=== PATIENT | female | born 1970 | race African-American/Black ===

== ENCOUNTER 2016-12-01 07:32 | Observation (INO) | payer MEDICAID ==
[~2016-12-01] VITALS: Ht 170.2 cm; Wt 70.0 kg
[2016-12-01 07:37] VITALS: BP 131/89; PULSE 92; RESP 16; TEMP 98.5; O2SAT 99
[2016-12-01] MEDS ORDERED: OMEG100010 (07:51)
[2016-12-01] MEDS ORDERED: BUPR100T4 PO (07:51)
[2016-12-01] MEDS ORDERED: LISI-515 PO (07:51)
[2016-12-01] MEDS ORDERED: ASPI81TA11 PO (07:51)
[2016-12-01 07:52] VITALS: O2SAT 99
[2016-12-01] MEDS ORDERED: NITROGLYCERIN 0.4 MG SL 25 TABS/BTL SL ONE (08:00)
[2016-12-01] MEDS ORDERED: SODIUM CHLORIDE 0.9% FLUSH 10 ML FLUSH IVF PRN (08:00)
--- NOTE | 2016-12-01 08:18 | RADRPT ---
EXAM DATE/TIME: 12/01/2016 07:53 [facility] COMPARISON: No previous studies available for comparison. INDICATIONS : Chest pain. Short of breath. MEDICAL HISTORY : None. SURGICAL HISTORY : None. ENCOUNTER: Initial ACUITY: 1 day PAIN SCORE: 6/10 LOCATION: middle chest FINDINGS: A single view of the chest demonstrates the lungs to be symmetrically aerated without evidence of mas s, infiltrate or effusion. Mild cardiomegaly. There is slight convexity along the ascending aorta. O sseous structures are intact. CONCLUSION: 1. Slight convexity ascending aorta. Aneurysm cannot be excluded. Contrasted CT chest recommended. 2. Mild cardiomegaly. Adam Wu MD on December 01, 2016 at 8:15 Board Certified Radiologist. This report was verified electronically.
[2016-12-01 08:30] LABS: AUTOMATED NEUTROPHIL # 0.9 TH/MM3 (1.8-7.7); BASOPHIL % 1.1 % (0.0-2.0); EOSINOPHIL % 1.5 % (0.0-4.0); HEMATOCRIT 40.1 % (35.0-46.0); HEMO FLAGS AUTO DIFF; MEAN CELL VOLUME 79.4 FL (80.0-100.0); MEAN CORPUSCULAR HEMOGLOBIN 25.7 PG (27.0-34.0); MEAN CORPUSCULAR HGB CONC 32.3 % (32.0-36.0); MONO % 7.6 % (0.0-8.0); NEUT % 28.8 % (16.0-70.0); PLATELET COUNT 215 TH/MM3 (150-450); RED BLOOD COUNT 5.05 MIL/MM3 (4.00-5.30); RED CELL DISTRIBUTION WIDTH 16.4 % (11.6-17.2); WHITE BLOOD COUNT 3.3 TH/MM3 (4.0-11.0)
[2016-12-01 08:40] LABS: APTT (PATIENT) 26.4 SEC (24.3-30.1)
[2016-12-01 09:05] LABS: ALT (GPT) 24 U/L (10-53)
[2016-12-01 09:11] LABS: NEUTROPHIL # MANUAL DIFF 1.1 TH/MM3 (1.8-7.7); POLYS (SEG NEUTROPHILS) 33 % (16-70); WBC DIFF SAMPLE 100
[2016-12-01 09:12] LABS: OVALOCYTES 1+ (NORMAL); PLATELET ESTIMATE SMEAR NORMAL (NORMAL); PLATELET MORPHOLOGY NORMAL (NORMAL); SCAN/DIFF FINAL DIFF MANUAL
[2016-12-01 09:13] LABS: ALKALINE PHOSPHATASE 69 U/L (45-117); ANION GAP 9 MEQ/L (5-15); AST (GOT) 19 U/L (15-37); BICARBONATE 21.6 MEQ/L (21.0-32.0); BLOOD UREA NITROGEN 10 MG/DL (7-18); CHLORIDE 111 MEQ/L (98-107); GLOMERULAR FILTRATION RATE 107 ML/MIN (>89); MAGNESIUM 2.2 MG/DL (1.5-2.5); SODIUM (NA) 142 MEQ/L (136-145); TOTAL BILIRUBIN ADULT 0.6 MG/DL (0.2-1.0)
[2016-12-01 09:19] LABS: CREATINE KINASE 91 U/L (26-192); POTASSIUM 3.7 MEQ/L (3.5-5.1)
[2016-12-01 09:32] VITALS: BP 121/83; PULSE 93; RESP 16; O2SAT 99
[2016-12-01 09:33] VITALS: BP 131/94
[2016-12-01] MEDS ORDERED: IOHEXOL 350 MG/ML 10 ML VIAL (for RAD DIAG) IV ONE (10:07)
--- NOTE | 2016-12-01 10:29 | RADRPT ---
EXAM DATE/TIME: 12/01/2016 09:51 [facility] COMPARISON: No previous studies available for comparison. INDICATIONS : Mid sternal chest pain since this morning IV CONTRAST: 72 cc Omnipaque 350 (iohexol) IV RADIATION DOSE: 14.42 CTDIvol (mGy) MEDICAL HISTORY : Cardiovascular disease. Hypertension. SURGICAL HISTORY : Hysterectomy. ENCOUNTER: Initial ACUITY: 1 day PAIN SCALE: 7/10 LOCATION: mid sternal TECHNIQUE: Volumetric scanning was performed using a multi-row detector CT scanner. The data was post processed with a variety of visualization algorithms including full volume maximum intensity projection, multi -planar sliding thin slab reformation, curved planar reformation, and surface rendering techniques. Using automated exposure control and adjustment of the mA and/or kV according to patient size, radiat ion dose was kept as low as reasonably achievable to obtain optimal diagnostic quality images. DICOM format image data is available electronically for review and comparison. FINDINGS: LUNGS: There is no consolidation or pneumothorax. Minimal linear densities in the lung bases. No concerning pulmonary nodule is visualized. No pleural fluid is present. MEDIASTINUM: No abnormally enlarged lymph nodes by CT criteria. No axillary or hilar abnormalities are identified. ABDOMEN: The liver and spleen are free of focal defects. The gallbladder and pancreas demonstrate no abnormali ty. The adrenal glands are normal. The kidneys demonstrate no evidence of solid renal mass or hydrone phrosis. No free fluid or abdominal masses are identified. No para-aortic adenopathy is seen. PELVIS: No evidence of free fluid or pelvic mass. No abnormally enlarged inguinal or retroperitoneal lymph no juana are present. The bladder is unremarkable. THORACIC AORTA: The thoracic aortic root is normal with normal branching of the great vessels, with the exception of an aberrant right subclavian artery coursing posterior to the esophagus. There is no evidence of ane urysm or dissection. ABDOMINAL AORTA: The aorta is normal in caliber without aneurysm or dissection. The renal arteries are patent bilater ally. The proximal celiac and superior mesenteric arteries are patent and normal in diameter. PELVIC VESSELS: The internal iliac and external iliac vessels are patent without aneurysm or stenosis. CONCLUSION: 1. No thoracic aortic aneurysm or dissection. 2. 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 3. Minimal bibasilar scarring. Adam Wu MD on December 01, 2016 at 10:23 Board Certified Radiologist. This report was verified electronically.
--- NOTE | 2016-12-01 11:01 | PD ---
HPI Chief Complaint: Chest Pain Time Seen by Provider: 07:48 Travel History International Travel<30 days: No Contact w/Intl Traveler<30days: No Traveled to known affect area: No History of Present Illness HPI 46-year-old female presents with central chest pain that started this morning while she was at work. She states that she had some a little bit yesterday. She denies any other concurrent complaints. She states this doesn't feel like her typical anxiety attack. She was given aspirin prior to arrival. She states it feels like a pressure and moved to the left side today. She denies any prior cardiac testing. She denies specific modifying factors. PFS Past Medical History Narrative Medical Confirmed by records Anemia: Yes Blood Disorders: No Anxiety: Yes Depression: No Cancer: No Cardiovascular Problems: Yes High Cholesterol: Yes Chemotherapy: No Diminished Hearing: No Endocrine: No Genitourinary: No Headaches: Yes (HEADACHE X4 DAYS) Hypertension: Yes Immune Disorder: No Musculoskeletal: No Neurologic: No Psychiatric: No Reproductive: Yes (FIBROIDS) Respiratory: No Radiation Therapy: No ?: Not Menopausal: Yes : 2 Para: 2 Miscarriage: 0 : 0 Tubal Ligation: Yes (1991) Past Surgical History Narrative Surgical Confirmed by records AICD: No Arteriovenous Shunt: No Gynecologic Surgery: Yes (TUBAL LIGATION, HYSTERECTOMY) Hysterectomy: Yes (2006) Insulin Pump: No Joint Replacement: No Pacemaker: No Other Surgery: No Social History Alcohol Use: Yes (BEER 6PK/DAILY) Tobacco Use: No (HASN'T SMOKED IN 3 MONTHS) Substance Use: No Allergies-Medications (Allergen,Severity, Reaction): Coded Allergies: No Known Allergies (Verified , 12/01/16) Reported Meds & Prescriptions Reported Meds & Active Scripts Active Reported Bupropion HCl 100 Mg Tab 100 Mg PO BID [place] 3 1000 mg ([place]-3 Fatty Acids) 1 Cap Cap Aspirin EC (Aspirin) 81 Mg Tabdr 81 Mg PO DAILY Lisinopril 20 Mg Tab 20 Mg PO DAILY Review of Systems Except as stated in HPI: all other systems reviewed are Neg Physical Exam Narrative GENERAL: Well-nourished, well-developed patient. SKIN: Warm and dry. HEAD: Normocephalic and atraumatic. EYES: No injection or drainage. ENT: No nasal drainage noted. NECK: Supple, trachea midline. CARDIOVASCULAR: Regular rate and rhythm RESPIRATORY: Breath sounds equal bilaterally. No accessory muscle use. GASTROINTESTINAL: Abdomen soft, non-tender, nondistended. EXTREMITIES: No edema. NEUROLOGICAL: Awake and alert. Motor and sensory grossly within normal limits. Normal speech. Data Data Last Documented VS Vital Signs Date Time Temp Pulse Resp B/P Pulse Ox O2 Delivery O2 Flow Rate FiO2 12/01/16 09:33 131/94 12/01/16 09:32 93 16 99 Room Air 12/01/16 07:37 98.5 Orders Electrocardiogram (12/01/16 07:48) Ckmb (Isoenzyme) Profile (12/01/16 07:48) Complete Blood Count With Diff (12/01/16 07:48) Comprehensive Metabolic Panel (12/01/16 07:48) Magnesium (Mg) (12/01/16 07:48) Prothrombin Time / Inr (Pt) (12/01/16 07:48) Act Partial Throm Time (Ptt) (12/01/16 07:48) Troponin I (12/01/16 07:48) Chest, Single Ap (12/01/16 07:48) Ecg Monitoring (12/01/16 07:48) Bilateral Bp Monitoring (12/01/16 07:48) Iv Access Insert/Monitor (12/01/16 07:48) Oximetry (12/01/16 07:48) Sodium Chloride 0.9% Flush (Ns Flush) (12/01/16 08:00) Nitroglycerin Sl (Nitrostat Sl) (12/01/16 08:00) Cta Thor Abd Aorta W Iv C W3d (12/01/16 09:36) Iohexol 350 Inj (Omnipaque 350 Inj) (12/01/16 10:07) Admit Order (Ed Use Only) (12/01/16 10:34) Labs Laboratory Tests Test 12/01/16 08:12 White Blood Count 3.3 TH/MM3 Red Blood Count 5.05 MIL/MM3 Hemoglobin 13.0 GM/DL Hematocrit 40.1 % Mean Corpuscular Volume 79.4 FL Mean Corpuscular Hemoglobin 25.7 PG Mean Corpuscular Hemoglobin 32.3 % Concent Red Cell Distribution Width 16.4 % Platelet Count 215 TH/MM3 Mean Platelet Volume 7.6 FL Neutrophils (%) (Auto) 28.8 % Lymphocytes (%) (Auto) 61.0 % Monocytes (%) (Auto) 7.6 % Eosinophils (%) (Auto) 1.5 % Basophils (%) (Auto) 1.1 % Neutrophils # (Auto) 0.9 TH/MM3 Lymphocytes # (Auto) 2.0 TH/MM3 Monocytes # (Auto) 0.2 TH/MM3 Eosinophils # (Auto) 0.0 TH/MM3 Basophils # (Auto) 0.0 TH/MM3 CBC Comment AUTO DIFF Differential Total Cells 100 Counted Neutrophils % (Manual) 33 % Lymphocytes % 60 % Monocytes % 7 % Neutrophils # (Manual) 1.1 TH/MM3 Differential Comment FINAL DIFF MANUAL Platelet Estimate NORMAL Platelet Morphology Comment NORMAL Ovalocytes 1+ Prothrombin Time 11.0 SEC Prothromb Time International 1.0 RATIO Ratio Activated Partial 26.4 SEC Thromboplast Time Sodium Level 142 MEQ/L Potassium Level 3.7 MEQ/L Chloride Level 111 MEQ/L Carbon Dioxide Level 21.6 MEQ/L Anion Gap 9 MEQ/L Blood Urea Nitrogen 10 MG/DL Creatinine 0.71 MG/DL Estimat Glomerular Filtration 107 ML/MIN Rate Random Glucose 92 MG/DL Calcium Level 9.3 MG/DL Magnesium Level 2.2 MG/DL Total Bilirubin 0.6 MG/DL Aspartate Amino Transf 19 U/L (AST/SGOT) Alanine Aminotransferase 24 U/L (ALT/SGPT) Alkaline Phosphatase 69 U/L Total Creatine Kinase 91 U/L Troponin I LESS THAN 0.02 NG/ML Total Protein 6.9 GM/DL Albumin 3.6 GM/DL MDM Medical Decision Making Medical Screen Exam Complete: Yes Emergency Medical Condition: Yes Medical Record Reviewed: Yes (past history confirmed) Interpretation(s) CBC & BMP Diagram 12/01/16 08:12 Last 24 hours Impressions Aorta CTA 12/01/16 0936 Signed Impressions: Service Date/Time: Thursday, December 01, 2016 09:51 - CONCLUSION: 1. No thoracic aortic aneurysm or dissection. 2. 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 3. Minimal bibasilar scarring. Adam Wu MD Chest X-Ray 12/01/16 0769 Signed Impressions: Service Date/Time: Thursday, December 01, 2016 07:53 - CONCLUSION: 1. Slight convexity ascending aorta. Aneurysm cannot be excluded. Contrasted CT chest recommended. 2. Mild cardiomegaly. Adam Wu MD EKG is sinus without STEMI criteria Differential Diagnosis FL, gastritis, anxiety, anemia Narrative Course Will check blood work, chest x-ray, EKG and dose with nitroglycerin and reevaluate Given chest x-ray will add on CT chest and reevaluate Patient updated and agrees to admission Diagnosis Primary Impression: Chest pain Qualified Code: R07.9 - Chest pain, unspecified type Jsesy Patino MD Dec 01, 2016 11:01
[2016-12-01] MEDS ORDERED: KETOROLAC TROMETHAMINE 30 MG/ML (IVP) VIAL IVP ONE (11:30)
[2016-12-01] MEDS ORDERED: ACETAMINOPHEN 500 MG CPLT PO PRN (11:30)
[2016-12-01] MEDS ORDERED: SODIUM CHLORIDE 0.9% FLUSH 5 ML FLUSH IVF PRN (11:30)
[2016-12-01] MEDS ORDERED: ONDANSETRON HCL 4 MG/2 ML VIAL IV PRN (11:30)
[2016-12-01] MEDS ORDERED: PANTOPRAZOLE SOD 40 MG DELAYED RELEASE TAB PO SCH (11:30)
[2016-12-01] MEDS ORDERED: ACETAMINOPHEN/HYDROcodone 325 MG/7.5 MG TAB PO PRN (11:30)
--- NOTE | 2016-12-01 11:37 | HHI.HP ---
HPI Primary Care Physician Chrissy Chapman DO Chief Complaint Chest pain History of Present Illness This is a 46-year-old female that presents to the ED via private vehicle with family members with a complaint of developing a central chest heaviness while she was at work. This occurred about 640 this morning. She had just started doing some cleaning. The discomfort is still present. Rubbing on the area seems to help but. Discomfort does not radiate. She did feel little nauseous initially. Denies shortness of breath or diaphoresis. She did not have these type symptoms before. Denies any prior cardiac workup. Denies recent illnesses. Review of Systems General: Patient denies fevers, chills recent, and recent travel. HEENT: Patient denies headache, sore throat, difficulty swallowing. Cardiovascular: Has the chest discomfort as mentioned above. Denies sensation of heart beating rapidly or irregularly. No syncope. Denies diaphoresis. Respiratory: Denies shortness of breath or inspirational chest discomfort. Denies coughing wheezing or hemoptysis. GI: Patient initially felt a little nauseous. She denies vomiting, diarrhea, abdominal pain, bloody stools. Musculoskeletal: Patient denies joint pain or edema. Denies calf pain or edema. Neurovascular: Patient denies numbness, tingling, weakness in extremities. Denies headache. Endocrine: Denies polyuria and polydipsia. Hematologic: Denies easy bruising. Skin: Denies rash or itching. Past Family Social History Allergies: Coded Allergies: No Known Allergies (Verified , 12/01/16) Past Medical History Hypertension, hyperlipidemia, sickle cell trait, past history tobacco abuse quitting smoking 3 months ago. Denies diabetes and known CAD. Past Surgical History Denies surgeries. Reported Medications Reported Meds & Active Scripts Active Reported Bupropion HCl 100 Mg Tab 100 Mg PO BID [place] 3 1000 mg ([place]-3 Fatty Acids) 1 Cap Cap Aspirin EC (Aspirin) 81 Mg Tabdr 81 Mg PO DAILY Lisinopril 20 Mg Tab 20 Mg PO DAILY Active Ordered Medications Current Medications Medications (Trade) Dose Ordered Sig/Italo Route Start Time Stop Time Status Last Admin (NS Flush) 2 ml UNSCH PRN IVF 12/01/16 08:00 (NS Flush) 2 ml UNSCH PRN IVF 12/01/16 11:30 UNV (NS Flush) 2 ml BID IVF 12/01/16 21:00 UNV (Tylenol) 500 mg Q4H PRN PO 12/01/16 11:30 UNV ([place] 7.5-325 Mg) 1 tab Q4H PRN PO 12/01/16 11:30 UNV (Zofran Inj) 4 mg Q6H PRN IV 12/01/16 11:30 UNV (Protonix) 40 mg DAILY PO 12/01/16 11:30 UNV (Aspirin) 325 mg DAILY PO 12/02/16 09:00 UNV Family History Denies family history of CAD. Social History She quit smoking 3 months ago but prior that she would smoke a couple cigarettes a day for 25 years. She has on average 4-5 beers a day. Denies illicit drugs. Physical Exam Vital Signs Vital Signs Date Time Temp Pulse Resp B/P Pulse Ox O2 Delivery O2 Flow Rate FiO2 12/01/16 09:33 131/94 12/01/16 09:32 93 16 121/83 99 Room Air 12/01/16 07:52 99 Room Air 12/01/16 07:37 98.5 92 16 131/89 99 Physical Exam GENERAL: This is a well-nourished, well-developed patient, in no apparent distress. Patient speaks in clear complete sentences. Patient is pleasant. Family members are also at the bedside. HEENT: Head is atraumatic and normocephalic. Neck is supple without lymphadenopathy and trachea is midline. No JVD or carotid bruits. CARDIOVASCULAR: Regular rate and rhythm without murmurs, gallops, or rubs. RESPIRATORY: There is reproducible chest wall discomfort over the sternum worsening symptoms that she has been having. This also is worsened with twisting of the torso. Clear to auscultation. Breath sounds equal bilaterally. No wheezes, rales, or rhonchi. Chest wall is nontender. No use of accessory muscles. GASTROINTESTINAL: Abdomen is nontender, nondistended. Abdomen soft. No obvious pulsatile mass or bruit. No CVA tenderness. Strong femoral pulses bilaterally. Normal bowel sounds in all quadrants. MUSCULOSKELETAL: Patient is moving upper and lower extremities freely. No calf tenderness or edema, no Homans sign. Strong pulses in upper and lower extremities. NEUROLOGICAL: Patient is alert and oriented. Cranial nerves 2-12 are grossly intact. No focal deficits and speech is clear. SKIN: No rash and turgor is normal. Laboratory Laboratory Tests Test 12/01/16 08:12 White Blood Count 3.3 Red Blood Count 5.05 Hemoglobin 13.0 Hematocrit 40.1 Mean Corpuscular Volume 79.4 Mean Corpuscular Hemoglobin 25.7 Mean Corpuscular Hemoglobin 32.3 Concent Red Cell Distribution Width 16.4 Platelet Count 215 Mean Platelet Volume 7.6 Neutrophils (%) (Auto) 28.8 Lymphocytes (%) (Auto) 61.0 Monocytes (%) (Auto) 7.6 Eosinophils (%) (Auto) 1.5 Basophils (%) (Auto) 1.1 Neutrophils # (Auto) 0.9 Lymphocytes # (Auto) 2.0 Monocytes # (Auto) 0.2 Eosinophils # (Auto) 0.0 Basophils # (Auto) 0.0 CBC Comment AUTO DIFF Differential Total Cells 100 Counted Neutrophils % (Manual) 33 Lymphocytes % 60 Monocytes % 7 Neutrophils # (Manual) 1.1 Differential Comment FINAL DIFF MANUAL Platelet Estimate NORMAL Platelet Morphology Comment NORMAL Ovalocytes 1+ Prothrombin Time 11.0 Prothromb Time International 1.0 Ratio Activated Partial 26.4 Thromboplast Time Sodium Level 142 Potassium Level 3.7 Chloride Level 111 Carbon Dioxide Level 21.6 Anion Gap 9 Blood Urea Nitrogen 10 Creatinine 0.71 Estimat Glomerular Filtration 107 Rate Random Glucose 92 Calcium Level 9.3 Magnesium Level 2.2 Total Bilirubin 0.6 Aspartate Amino Transf 19 (AST/SGOT) Alanine Aminotransferase 24 (ALT/SGPT) Alkaline Phosphatase 69 Total Creatine Kinase 91 Troponin I LESS THAN 0.02 Total Protein 6.9 Albumin 3.6 Result Diagram: 12/01/1612 12/01/16 0812 Imaging Last 24 hours Impressions Aorta CTA 12/01/16 0936 Signed Impressions: Service Date/Time: Thursday, December 01, 2016 09:51 - CONCLUSION: 1. No thoracic aortic aneurysm or dissection. 2. 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 3. Minimal bibasilar scarring. Adam Wu MD Chest X-Ray 12/01/16 0748 Signed Impressions: Service Date/Time: Thursday, December 01, 2016 07:53 - CONCLUSION: 1. Slight convexity ascending aorta. Aneurysm cannot be excluded. Contrasted CT chest recommended. 2. Mild cardiomegaly. Adam Wu MD Course Initial EKG is sinus rhythm rate of [address] segment depressions or elevations. Assessment and Plan Assessment and Plan * Atypical chest pain: Patient's discomfort appears to be musculoskeletal in nature but she does have risk factors. She will be seen by Dr. Aranda cardiology in the chest pain center. She will continue to have serial cardiac enzymes and EKGs for ruling out purposes. We will give IV Toradol. Further plan pending Dr. Aranda's evaluation. She should follow-up with primary care physician. * Hypertension: Continue current medication. * Hyperlipidemia: Continue current medication. Patient is stable at this time. She is agreeable to this plan. Yariel Colmenares Dec 01, 2016 11:37
[2016-12-01] MEDS ORDERED: LISINOPRIL 20 MG TAB PO SCH (11:45)
[2016-12-01 12:13] VITALS: BP 145/99; PULSE 86; RESP 16; TEMP 98.3; O2SAT 100
[2016-12-01 12:43] LABS: CREATINE KINASE 79 U/L (26-192)
[2016-12-01 15:24] LABS: CREATINE KINASE 67 U/L (26-192)
--- NOTE | 2016-12-01 16:57 | EKG ---
Date Performed: 12/01/2016 Time Performed: 11:35:16 PTAGE: 46 years EKG: Sinus rhythm WITH SINUS ARRHYTHMIA NORMAL ECG Since PREVIOUS TRACING , no significant change noted PREVIOUS TRACIN12/01/2016 07.41 DOCTOR: Yarelis Aranda Interpretating Date/Time 12/01/2016 16:57:11
--- NOTE | 2016-12-01 16:58 | EKG ---
Date Performed: 12/01/2016 Time Performed: 07:41:08 PTAGE: 46 years EKG: Sinus rhythm NORMAL ECG NO PREVIOUS TRACING DOCTOR: Yarelis Aranda Interpretating Date/Time 12/01/2016 16:58:00
[2016-12-01] MEDS ORDERED: NAPR550T3 PO (17:07)
[2016-12-01] MEDS ORDERED: MEDI220T PO (17:07)
--- NOTE | 2016-12-01 17:09 | HHI.DCPOC ---
Discharge Care Plan Diagnosis: (1) Chest pain (2) Hypertension (3) Hyperlipidemia Goals to Promote Your Health * To prevent worsening of your condition and complications * To maintain your health at the optimal level Directions to Meet Your Goals Take your medications as prescribed Follow your dietary instruction Follow activity as directed Keep your appointments as scheduled Take your immunizations and boosters as scheduled If your symptoms worsen call your PCP, if no PCP go to Urgent Care Center or Emergency Room Smoking is Dangerous to Your Health. Avoid second hand smoke Call the 24-hour hour crisis hotline for domestic abuse at Yariel Colmenares Dec 01, 2016 17:09
[2016-12-01] MEDS ORDERED: SODIUM CHLORIDE 0.9% FLUSH 5 ML FLUSH IVF SCH (21:00)
[2016-12-01] MEDS ORDERED: buPROPion HCL 100 MG TAB PO SCH (21:00)
[2016-12-02] MEDS ORDERED: ASPIRIN 325 MG TAB PO SCH (09:00)
--- NOTE | 2016-12-02 16:18 | EKG ---
Date Performed: 12/01/2016 Time Performed: 14:39:28 PTAGE: 46 years EKG: Sinus rhythm NORMAL ECG PREVIOUS TRACING : 12/01/2016 11.35 Since previous tracing, no significant change noted DOCTOR: Miguelangel Cruz Interpretating Date/Time 12/02/2016 16:16:59
== END 2016-12-01 18:34 | disposition home or self-care (01) ==
LOC: NEPC 07:32 → NEDA 10:35 → NEPHCDU 11:56
PROVIDERS: ADMIT Internal Medicine Interventional Cardiology; ATTEND Internal Medicine Interventional Cardiology
DX: R07.89 Other chest pain (principal); I10 Essential (primary) hypertension; E78.5 Hyperlipidemia, unspecified; I51.7 Cardiomegaly; D64.9 Anemia, unspecified; F41.9 Anxiety disorder, unspecified; Z79.899 Other long term (current) drug therapy; Z79.82 Long term (current) use of aspirin; Z87.891 Personal history of nicotine dependence
CPT/HCPCS: 71010; 71275; 74174; 80053; 82550; 83735; 84484; 85007; 85027; 85610; 85730; 93005; 99285; G0378; J1885; Q9967

== ENCOUNTER 2016-12-10 15:42 | Emergency (ER) | payer MEDICAID ==
[~2016-12-10] VITALS: Ht 170.2 cm; Wt 69.5 kg
[~2016-12-10 15:42] MED LIST: ASPI81TA11 PO; BUPR100T4 PO; LISI-515 PO; MEDI220T PO; NAPR550T3 PO; OMEG100010
[2016-12-10 15:43] VITALS: BP 149/93; PULSE 97; RESP 18; TEMP 98.5; O2SAT 98
--- NOTE | 2016-12-10 15:53 | PD ---
Physical Exam Time Seen by Provider: 15:53 Narrative 46 y/o female with abdominal pain for 2 days. Vital signs reviewed. Seen at triage desk. Awaiting bed placement. Data Data Last Documented VS Vital Signs Date Time Temp Pulse Resp B/P Pulse Ox O2 Delivery O2 Flow Rate FiO2 12/10/16 15:43 98.5 97 18 149/93 98 Room Air [facility] Medical Record Reviewed: Yes Supervised Visit with MARSHA: No Omar Brunner Dec 10, 2016 15:53
[2016-12-10 17:01] LABS: BACTERIA, URINE MANY /hpf; BLOOD, URINE SMALL (NEG); COMMENT (UR) CULTURE INDICATED; CULTURE IF INDICATED CULTURE INDICATED; GLUCOSE,URINE NEG (NEG); KETONE, URINE TRACE mg/dL (NEG); MUCUS URINE FEW /lpf (OCC); NITRITE,URINE NEG (NEG); SQUAMOUS EPITHELIAL CELL URINE 7 /hpf (0-5); TRANSITIONAL EPI CELLS, URINE 1 /hpf; URINE COLOR YELLOW (YELLW/STRAW)
[2016-12-10] MEDS ORDERED: NIAC500T5 PO (17:21)
[2016-12-10] MEDS ORDERED: MACR100C2 PO (17:24)
--- NOTE | 2016-12-10 17:24 | PD ---
HPI Chief Complaint: Complaint Time Seen by Provider: 17:15 Travel History International Travel<30 days: No Contact w/Intl Traveler<30days: No Traveled to known affect area: No History of Present Illness HPI 46 yo F c/o dysuria, frequency and pelvic pain for about 2 days. Onset gradual. Timing constant. Pain is worse with palpation. No fever/chills. No n/v/d. No vb/ vd. She notes hx hysterectomy. Pt states pain feels similar to prior UTIs. PFSH Past Medical History Anemia: Yes Blood Disorders: No Anxiety: Yes Depression: No Heart Rhythm Problems: No Cancer: No Cardiac Catheterization: No Cardiovascular Problems: Yes High Cholesterol: Yes Chemotherapy: No Congestive Heart Failure: No Diabetes: No Diminished Hearing: No Endocrine: No Genitourinary: No Headaches: Yes (HEADACHE X4 DAYS) Hypertension: Yes Immune Disorder: No Musculoskeletal: No Neurologic: No Psychiatric: No Reproductive: Yes (FIBROIDS) Respiratory: No Radiation Therapy: No Tetanus Vaccination: Unknown ?: Not Menopausal: Yes : 2 Para: 2 Miscarriage: 0 : 0 Tubal Ligation: Yes (1991) Past Surgical History AICD: No Arteriovenous Shunt: No Coronary Artery Bypass Graft: No Gynecologic Surgery: Yes (TUBAL LIGATION, HYSTERECTOMY) Hysterectomy: Yes (2006) Insulin Pump: No Joint Replacement: No Pacemaker: No Other Surgery: No Social History Alcohol Use: Yes (BEER 6PK/DAILY) Tobacco Use: No (HASN'T SMOKED IN 3 MONTHS) Substance Use: No Allergies-Medications (Allergen,Severity, Reaction): Coded Allergies: No Known Allergies (Verified , 12/10/16) Reported Meds & Prescriptions Reported Meds & Active Scripts Active Naproxen Sodium DS (Naproxen Sodium) 550 Mg Tab 550 Mg PO BID Naproxen Sodium 220 Mg Tab 220 Mg PO BID PRN AFTER FINISHING NAPROXEN DS Reported Bupropion HCl 100 Mg Tab 100 Mg PO BID [place] 3 1000 mg ([place]-3 Fatty Acids) 1 Cap Cap Aspirin EC (Aspirin) 81 Mg Tabdr 81 Mg PO DAILY Lisinopril 20 Mg Tab 20 Mg PO DAILY Review of Systems Except as stated in HPI: all other systems reviewed are Neg General / Constitutional: No: Fever Physical Exam Narrative GENERAL: 46 yo F, WNWD, NAD SKIN: Warm and dry. HEAD: Atraumatic. Normocephalic. EYES: Pupils equal and round. No scleral icterus. No injection or drainage. ENT: No nasal bleeding or discharge. Mucous membranes pink and moist. NECK: Trachea midline. No JVD. CARDIOVASCULAR: Regular rate and rhythm. RESPIRATORY: No accessory muscle use. Clear to auscultation. Breath sounds equal bilaterally. GASTROINTESTINAL: Soft. + TTP suprapubic abdomen. No flank tenderness. MUSCULOSKELETAL: Extremities without clubbing, cyanosis, or edema. No obvious deformities. NEUROLOGICAL: Awake and alert. No obvious cranial nerve deficits. Motor grossly within normal limits. Five out of 5 muscle strength in the arms and legs. Normal speech. PSYCHIATRIC: Appropriate mood and affect; insight and judgment normal. Data Data Last Documented VS Vital Signs Date Time Temp Pulse Resp B/P Pulse Ox O2 Delivery O2 Flow Rate FiO2 12/10/16 17:13 18 12/10/16 15:43 98.5 97 149/93 98 Room Air VS reviewed Orders Urinalysis - C+S If Indicated (12/10/16 16:03) Urine Culture (12/10/16 16:05) Labs Laboratory Tests Test 12/10/16 16:05 Urine Color YELLOW Urine Turbidity HAZY Urine pH 6.0 Urine Specific [place] 1.023 Urine Protein TRACE mg/dL Urine Glucose (UA) NEG mg/dL Urine Ketones TRACE mg/dL Urine Occult Blood SMALL Urine Nitrite NEG Urine Bilirubin NEG Urine Urobilinogen LESS THAN 2.0 MG/DL Urine Leukocyte Esterase LARGE Urine RBC 18 /hpf Urine WBC 150 /hpf Urine Squamous Epithelial 7 /hpf Cells Urine Transitional Epithelial 1 /hpf Cells Urine Bacteria MANY /hpf Urine Mucus FEW /lpf Microscopic Urinalysis Comment CULTURE INDICATED MDM Medical Decision Making Medical Screen Exam Complete: Yes Emergency Medical Condition: Yes Medical Record Reviewed: Yes Differential Diagnosis IUP, UTI, ectopic , ov torsion, appendicitis, TOA, cervicitis, BV, Trichomoniasis, ov cyst, hernia, mittelschmerz, pain from menstruation Narrative Course UA: UTI present Pt has hx hysterectomy. Bactrim script. Return precautions discussed. Diagnosis Primary Impression: Cystitis Additional Instructions: You have a choice when it comes to health care, and we are glad that you chose [facility]. Hopefully, we have met your expectations on today's visit. You are welcome to return to [facility] at any time, as we are committed to meeting the health care needs of our community. PLEASE RETURN TO ER IF YOU DEVELOP VOMITING OR IF THE PAIN BECOMES SEVERE. PLEASE TAKE YOUR ANTIBIOTIC UNTIL IS COMPLETED. Med/Other Pt SpecificInfo: Prescription(s) given Scripts Nitrofurantoin Monohydrate Macrocrystals (Macrobid)100 Mg Plq060 Mg PO BID 5 Days Ref 0 Prov:Arden Bahena MD 12/10/16 Disposition: 01 DISCHARGE HOME Condition: Stable Arden Bahena MD Dec 10, 2016 17:24
[2016-12-10 17:30] VITALS: BP 124/89; PULSE 86; RESP 18; TEMP 98; O2SAT 100
[2016-12-10] MEDS ORDERED: NITROFURANTOIN MONOHYD MACROCR 100 MG CAP PO ONE (17:30)
== END 2016-12-10 17:57 | disposition home or self-care (01) ==
LOC: NEPD 15:42
DX: B96.20 Unspecified Escherichia coli [E. coli] as the cause of diseases classified elsewhere (principal); N39.0 Urinary tract infection, site not specified; D64.9 Anemia, unspecified; F41.9 Anxiety disorder, unspecified; I10 Essential (primary) hypertension; E78.00 Pure hypercholesterolemia, unspecified; Z79.899 Other long term (current) drug therapy; Z79.82 Long term (current) use of aspirin
CPT/HCPCS: 81001; 87077; 87086; 87186; 99283